=== PATIENT | female | born 1955 | race Caucasian/White ===

== ENCOUNTER 2016-05-31 12:26 | Inpatient (IN) | payer OTHER ==
[2016-05-31] MEDS ORDERED: TENORMIN 25 MG25 MG PO (15:53)
[2016-05-31] MEDS ORDERED: NORVASC 5 MG TAB5 MG PO (15:53)
[2016-05-31] MEDS ORDERED: ATROVENT HFA12.9 GM INH (15:54)
[2016-05-31] MEDS ORDERED: FLEXERIL 10 MG10 MG PO (15:54)
[2016-05-31] MEDS ORDERED: SIMVASTATIN20 MG PO (15:54)
[2016-05-31] MEDS ORDERED: FIORICET 50-301 EACH PO (15:55)
[2016-05-31] MEDS ORDERED: MOBIC7.5 MG PO (15:55)
[2016-05-31] MEDS ORDERED: XYZAL5 MG PO (15:56)
[2016-05-31] MEDS ORDERED: TYLENOL 325MG325 MG PO (15:57)
[2016-05-31] MEDS ORDERED: VENTOLIN HFA 66.7 GM INH (15:57)
[2016-05-31] MEDS ORDERED: ASPIRIN EC81 MG PO (15:57)
[2016-05-31] MEDS ORDERED: VITAMIN D5000 UNIT PO (15:58)
[2016-05-31] MEDS ORDERED: PROBIOTIC250 MG PO (15:58)
[2016-05-31] MEDS ORDERED: IPRAT-ALBUT 0.5-3 ML INH (16:00)
[2016-05-31 18:59] LABS: HEMOGLOBIN 11.5 gm/dl (12.3-15.3); RED BLOOD COUNT 3.97 M/UL (4.00-5.10)
[2016-05-31 19:17] LABS: BUN/CREATININE RATIO 22 (0-10)
[2016-06-01 05:49] LABS: HEMOGLOBIN 10.3 gm/dl (12.3-15.3); RED BLOOD COUNT 3.59 M/UL (4.00-5.10); WHITE BLOOD COUNT 7.4 K/UL (4.5-11.0)
[2016-06-01 06:09] LABS: BUN/CREATININE RATIO 24 (0-10)
[2016-06-02] MEDS ORDERED: SYMBICORT 160-1 INHA INH (17:35)
[2016-06-02] MEDS ORDERED: LEVAQUIN750 MG PO (17:38)
[2016-06-02] MEDS ORDERED: PREDNISONE 10 M10 MG PO (17:40)
== END 2016-06-02 18:51 | disposition home health service (06) | DRG 189 ==
LOC: M/S 14:56
PROVIDERS: Internal Medicine Pulmonary Disease; ADMIT Internal Medicine
PROC: 0BJ08ZZ Inspection of Tracheobronchial Tree, Via Natural or Artificial Opening Endoscopic (ICD-10-PCS; principal; 2016-06-01 08:45)
DX: J96.01 Acute respiratory failure with hypoxia (principal); J18.9 Pneumonia, unspecified organism; E46 Unspecified protein-calorie malnutrition; J44.9 Chronic obstructive pulmonary disease, unspecified; I71.4 Abdominal aortic aneurysm, without rupture; M19.90 Unspecified osteoarthritis, unspecified site; I10 Essential (primary) hypertension; Z85.43 Personal history of malignant neoplasm of ovary; I73.9 Peripheral vascular disease, unspecified; F17.210 Nicotine dependence, cigarettes, uncomplicated; Z90.710 Acquired absence of both cervix and uterus; Z98.890 Other specified postprocedural states; Z79.899 Other long term (current) drug therapy; Z79.82 Long term (current) use of aspirin; Z82.49 Family history of ischemic heart disease and other diseases of the circulatory system; Z80.9 Family history of malignant neoplasm, unspecified; E78.5 Hyperlipidemia, unspecified; Z68.28 Body mass index [BMI] 28.0-28.9, adult
CPT/HCPCS: 36415; 71020; 80048; 82803; 83735; 85027; 87015; 87070; 87102; 87116; 87205; 94640; 94664; J1956; J2001; J2920; J7040

== ENCOUNTER → 2021-08-17 | Outpatient (CLI) | payer MEDICARE ==
[~2021-08-17] MED LIST: ASPIRIN EC81 MG PO; ATROVENT HFA12.9 GM INH; FIORICET 50-301 EACH PO; FLEXERIL 10 MG10 MG PO; IPRAT-ALBUT 0.5-3 ML INH; LEVAQUIN750 MG PO; MOBIC7.5 MG PO; NORVASC 5 MG TAB5 MG PO; PREDNISONE 10 M10 MG PO; PROBIOTIC250 MG PO; SIMVASTATIN20 MG PO; SYMBICORT 160-1 INHA INH; TENORMIN 25 MG25 MG PO; TYLENOL 325MG325 MG PO; VENTOLIN HFA 66.7 GM INH; VITAMIN D5000 UNIT PO; XYZAL5 MG PO
== END ==
LOC: CT 08-07 13:30 → MRI 08-07 14:00 → CT 11:29
DX: I71.4 Abdominal aortic aneurysm, without rupture (principal); I65.23 Occlusion and stenosis of bilateral carotid arteries; I25.10 Atherosclerotic heart disease of native coronary artery without angina pectoris; I73.9 Peripheral vascular disease, unspecified; I77.89 Other specified disorders of arteries and arterioles; I70.0 Atherosclerosis of aorta
CPT/HCPCS: 36415; 74160; 82565; 84520; A9577; Q9967